=== PATIENT | male | born 1980 | race Caucasian/White ===

== ENCOUNTER 2023-09-25 06:17 | Day surgery (SDC) | payer BC, SELFPAY ==
[2023-09-25 09:45] VITALS: BMI 35.1
[2023-09-25 09:49] VITALS: BP 122/75
[2023-09-25 11:50] VITALS: BP 106/67
[2023-09-25 12:00] VITALS: BP 107/77
[2023-09-25 12:15] VITALS: BP 105/66
[2023-09-25 12:30] VITALS: BP 105/65
== END 2023-09-25 12:40 | disposition home or self-care (01) ==
LOC: GI 06:17
PROVIDERS: ATTENDING PHYSICIAN Internal Medicine Gastroenterology
DX: I85.00 Esophageal varices without bleeding (principal); K26.9 Duodenal ulcer, unspecified as acute or chronic, without hemorrhage or perforation; K31.89 Other diseases of stomach and duodenum
CPT/HCPCS: 43235

== ENCOUNTER 2023-11-07 06:19 | Day surgery (SDC) | payer BC, SELFPAY ==
[2023-11-07 10:16] VITALS: BP 99/76
[2023-11-07 10:17] VITALS: BMI 35.1
[2023-11-07 12:34] VITALS: BP 99/66
[2023-11-07 12:45] VITALS: BP 103/67
[2023-11-07 12:53] VITALS: BP 114/81
== END 2023-11-07 13:10 | disposition home or self-care (01) ==
LOC: GI 06:19
PROVIDERS: ATTENDING PHYSICIAN Internal Medicine Gastroenterology
DX: Z12.11 Encounter for screening for malignant neoplasm of colon (principal); D12.3 Benign neoplasm of transverse colon; D12.4 Benign neoplasm of descending colon; K63.5 Polyp of colon; K52.9 Noninfective gastroenteritis and colitis, unspecified; K64.1 Second degree hemorrhoids; Z86.010 Personal history of colon polyps; Z98.890 Other specified postprocedural states
CPT/HCPCS: 45385; 88305

== ENCOUNTER → 2024-03-28 07:31 | Outpatient (REF) | payer BC, SELFPAY | LOC: PAVMRI 07:31 | PROVIDERS: ATTENDING PHYSICIAN Internal Medicine Gastroenterology; FAMILY PHYSICIAN Family Medicine | DX: K70.31 Alcoholic cirrhosis of liver with ascites (principal) | CPT/HCPCS: 74183; A9581 ==